=== PATIENT | female | born 1975 | race Caucasian/White ===

== ENCOUNTER → 2018-02-13 | Outpatient (CLI) | payer OTHER ==
[~2018-02-13] MED LIST: FLUC150A PO; LORA10 PO; Prednisone20 MG PO
== END ==
LOC: LAB SHORT 13:30 → PLD 13:30
DX: N84.1 Polyp of cervix uteri (principal)
CPT/HCPCS: 88305

== ENCOUNTER → 2018-05-07 | Outpatient (CLI) | payer OTHER | LOC: LAB 12:21 → LAB SHORT 12:21 | PROVIDERS: Obstetrics & Gynecology | DX: N89.8 Other specified noninflammatory disorders of vagina (principal); N93.9 Abnormal uterine and vaginal bleeding, unspecified | CPT/HCPCS: 87070; 87205; 87624; 88142 ==

== ENCOUNTER → 2018-08-02 | Outpatient (CLI) | payer OTHER | END | disposition home or self-care (01) | LOC: LAB EV 19:15 → LAB SHORT 19:15 | DX: J06.9 Acute upper respiratory infection, unspecified (principal) | CPT/HCPCS: 87070 ==

== ENCOUNTER → 2018-12-04 | Outpatient (CLI) | payer OTHER ==
[2018-12-06 03:10] LABS: CHLAMYDIA TRACHOMATIS, NAA Negative (Negative); NEISSERIA GONORRHOEAE, NAA Negative (Negative)
== END | disposition home or self-care (01) ==
LOC: LAB EV 13:02 → LAB SHORT 13:02
PROVIDERS: Physician Assistant Medical
DX: J02.9 Acute pharyngitis, unspecified (principal); N94.819 Vulvodynia, unspecified
CPT/HCPCS: 87070; 87147; 87205; 87491; 87529; 87591

== ENCOUNTER → 2019-02-22 | Outpatient (CLI) | payer OTHER | END | disposition home or self-care (01) | LOC: LAB SHORT 10:55 → LAB 10:55 | DX: N93.9 Abnormal uterine and vaginal bleeding, unspecified (principal); R53.83 Other fatigue; Z85.3 Personal history of malignant neoplasm of breast | CPT/HCPCS: 87070; 87205 ==

== ENCOUNTER → 2021-10-27 | Outpatient (CLI) | payer OTHER | END | disposition home or self-care (01) | LOC: LAB 20:06 → LAB SHORT 20:06 | DX: N39.0 Urinary tract infection, site not specified (principal) | CPT/HCPCS: 87086 ==

== ENCOUNTER → 2022-05-19 | Outpatient (CLI) | payer OTHER | END | disposition home or self-care (01) | LOC: LAB 09:47 → LAB SHORT 09:47 | DX: N39.0 Urinary tract infection, site not specified (principal) | CPT/HCPCS: 87077; 87086; 87186 ==

== ENCOUNTER → 2022-08-26 | Outpatient (CLI) | payer OTHER ==
[2022-08-29 15:08] LABS: HPV 16 Negative (Negative); HPV 18 Negative (Negative); HPV OTHER HR TYPES Positive (Negative)
== END | disposition home or self-care (01) ==
LOC: LAB SHORT 14:02 → LAB 14:02
PROVIDERS: Family Medicine
DX: Z01.419 Encounter for gynecological examination (general) (routine) without abnormal findings (principal)
CPT/HCPCS: 87624; 87625; G0123

== ENCOUNTER → 2023-07-07 | Outpatient (CLI) | payer OTHER ==
[2023-07-11 10:10] LABS: HPV 16 Negative (Negative); HPV 18 Negative (Negative); HPV OTHER HR TYPES Positive (Negative)
== END ==
LOC: LAB SHORT 13:29 → LAB 13:29
PROVIDERS: Obstetrics & Gynecology
DX: Z12.4 Encounter for screening for malignant neoplasm of cervix (principal)
CPT/HCPCS: 87624; G0145

== ENCOUNTER → 2023-08-11 | Outpatient (CLI) | payer OTHER ==
[2023-08-11 14:41] LABS: Source, Urine Clean Catch
[2023-08-11 15:33] LABS: Bilirubin, Urine Neg (Neg); Blood, Urine 5+ (Neg); Color, Urine Yellow (P-Yellow); Glucose Qualitative, Urine Neg (Neg); Ketones, Urine Neg (Neg); Leukocyte Esterase, Urine Neg (Neg); Nitrite, Urine Neg (Neg); Protein, Urine Neg (Neg); Urobilinogen, Urine NORM (Normal)
[2023-08-11 15:51] LABS: Appearance, Urine Hazy (Clear)
[2023-08-11 15:53] LABS: Bacteria Mod /hpf; Mucus Light (0-Heavy); Red Blood Cells, Urine TNTC /hpf (0-2); Squamous Epithelial Cells Rare /hpf (Few)
== END | disposition home or self-care (01) ==
LOC: LAB 14:40 → LAB SHORT 14:40
PROVIDERS: Obstetrics & Gynecology
DX: Z78.9 Other specified health status (principal)
CPT/HCPCS: 81001; 87086

== ENCOUNTER 2023-08-24 10:45 | Day surgery (SDC) | payer OTHER ==
[~2023-08-24] VITALS: Ht 162.6 cm; Wt 80.1 kg
--- NOTE | 2023-08-24 13:04 | NUR ---
08/24/23 1304 Grace Pineda IUD PLACED BY DR RUSHING AT [facility]. EXPIRATION 02/10/2026 LOT # [id number]. PLACED AT 1303.
[2023-08-24 14:03] VITALS: BP 120/74
--- NOTE | 2023-08-24 14:04 | NUR ---
08/24/23 1404 Tayler Chew FAMILY IN ROOM W PT, PT REPORTS PAIN IS MUCH BETTER AT 2/10 REPORTS IT IS TOLERABLE DECLINES IV PAIN MEDICATION
== END 2023-08-24 14:25 | disposition home or self-care (01) ==
LOC: ORSCSDS 10:45
PROVIDERS: Obstetrics & Gynecology
PROC: 0UH97HZ Insertion of Contraceptive Device into Uterus, Via Natural or Artificial Opening (ICD-10-PCS; principal; 2023-08-24 12:00)
PROC: 0UDB8ZX Extraction of Endometrium, Via Natural or Artificial Opening Endoscopic, Diagnostic (ICD-10-PCS; principal; 2023-08-24 12:00)
DX: N93.8 Other specified abnormal uterine and vaginal bleeding (principal); N88.2 Stricture and stenosis of cervix uteri; N72 Inflammatory disease of cervix uteri; D68.51 Activated protein C resistance; Z85.3 Personal history of malignant neoplasm of breast; Z79.899 Other long term (current) drug therapy
CPT/HCPCS: 88305; A9270; J1100; J1885; J2405; J2704; J3010; J7120; J7297

== ENCOUNTER → 2023-09-15 | Outpatient (CLI) | payer OTHER | END | disposition home or self-care (01) | LOC: LAB 13:13 → LAB SHORT 13:13 | DX: N87.9 Dysplasia of cervix uteri, unspecified (principal); N72 Inflammatory disease of cervix uteri | CPT/HCPCS: 88305 ==

== ENCOUNTER → 2023-12-01 | Outpatient (CLI) | payer OTHER ==
[2023-12-01 16:08] LABS: Source, Urine Clean Catch
[2023-12-01 18:15] LABS: Appearance, Urine Hazy (Clear); Bilirubin, Urine Neg (Neg); Blood, Urine 5+ (Neg); Color, Urine Yellow (P-Yellow); Glucose Qualitative, Urine Neg (Neg); Ketones, Urine Neg (Neg); Leukocyte Esterase, Urine 1+ (Neg); Nitrite, Urine Neg (Neg); Protein, Urine 1+ (Neg); Urobilinogen, Urine NORM (Normal)
[2023-12-01 18:29] LABS: Bacteria Few /hpf; Red Blood Cells, Urine 25-50 /hpf (0-2); Squamous Epithelial Cells Few /hpf (Few)
== END | disposition home or self-care (01) ==
LOC: LAB SHORT 16:04 → LAB 16:04
PROVIDERS: Obstetrics & Gynecology
DX: Z01.812 Encounter for preprocedural laboratory examination (principal)
CPT/HCPCS: 81001; 87086

== ENCOUNTER 2023-12-11 08:21 | Day surgery (SDC) | payer OTHER ==
[2023-12-08 10:19] LABS: International Normalized Ratio 0.98; Prothrombin Time Results 10.3 Sec (9.7-11.5)
[2023-12-08 10:22] LABS: BASOPHILS ABSOLUTE AUTO 0.11 K/mm3 (0.00-0.23); BASOPHILS PERCENT AUTO 1 % (0-2); EOSINOPHILS PERCENT AUTO 5 % (0-6); IMMATURE GRAN ABSOLUTE AUTO 0.03 K/mm3 (0.00-0.10); IMMATURE GRAN PERCENT AUTO 0 % (0-1); LYMPHOCYTES ABSOLUTE AUTO 2.35 K/mm3 (0.84-5.20); LYMPHOCYTES PERCENT AUTO 23 % (21-46); MONOCYTES ABSOLUTE AUTO 0.69 K/mm3 (0.16-1.47); MONOCYTES PERCENT AUTO 7 % (4-13); Mean Corpuscular HGB Conc 31.8 g/dL (31.5-36.5); Mean Corpuscular Volume 79 fL (80-100); Mean Platelet Volume 8.8 fL (9.1-12.4); NEUTROPHILS ABSOLUTE AUTO 6.65 K/mm3 (1.96-9.15); NEUTROPHILS PERCENT AUTO 64 % (41-73); Platelet Count 318 K/mm3 (150-400); Red Blood Cell Count 5.59 M/mm3 (3.80-5.20); White Blood Cell Count 10.33 K/mm3 (4.00-11.30)
[2023-12-11] VITALS (18 sets, daily range): BP systolic 113–151; BP diastolic 62–88
[~2023-12-11] VITALS: Ht 170.2 cm; Wt 82.9 kg
--- NOTE | 2023-12-11 14:23 | NUR ---
PT ARRIVED TO FROM PACU ORIENTED TO USE OF CALL LIGHT. PROVIDED COOL CLOTH TO FOREHEAD AND PROVIDED TISSUE, ICE WATER AND JELLO. FAMILY BEDSIDE. VSS.
--- NOTE | 2023-12-11 19:31 | NUR ---
SHIFT SUMMARY PT A&0X4, VSS/RA, JOVANY PO, PAIN MANAGED, AMB INDEPENDENTLY. BS >400 - REFUSED STRAIGHT CATH, AMB HALLWAY, VOIDED-PT REP LARGE AMT, FOLLOW UP BS 589; PT AND MOM ARE AMB HALLWAY AND WILL BE BS AGAIN BY NOC SHIFT. WILL REPORT TO ONCOMING NOC RN.
--- NOTE | 2023-12-11 20:27 | NUR ---
DC/ASSESSMENT POD 0-ROBOTIC LAP TOTAL HYSTER. AOX4, WALKING HALLS IND c MOTHER. REPORTS PAIN 11/22, STATES TOLERABLE. DENIES ANY HEAVY BLEEDING OR CLOTS ON DEBRA PAD. DENIES N/V, TOLERATING PO. VSS. BLADDER SCAN FOR ROUGHLY 500ML & PT VOIDED AROUND 500ML. PT REQUESTING TO DC TONIGHT. IV REMOVED. DOCK SUPERVISORMAY Cheek WORKING ON DC.
== END 2023-12-11 20:44 | disposition home or self-care (01) ==
LOC: ORSCMMR 08:21 → ORD 09:30 → ORSCMMR 09:30 → ORD 10:15 → SURS 14:29 → ORSCMMR 20:44
PROVIDERS: Obstetrics & Gynecology
PROC: 0UT9FZZ Resection of Uterus, Via Natural or Artificial Opening With Percutaneous Endoscopic Assistance (ICD-10-PCS; principal; 2023-12-11 09:30)
PROC: 0UPD7HZ Removal of Contraceptive Device from Uterus and Cervix, Via Natural or Artificial Opening (ICD-10-PCS; principal; 2023-12-11 09:30)
PROC: 0UT7FZZ Resection of Bilateral Fallopian Tubes, Via Natural or Artificial Opening With Percutaneous Endoscopic Assistance (ICD-10-PCS; principal; 2023-12-11 09:30)
DX: N93.8 Other specified abnormal uterine and vaginal bleeding (principal); N85.00 Endometrial hyperplasia, unspecified; D25.9 Leiomyoma of uterus, unspecified; N80.03 Adenomyosis of the uterus; N72 Inflammatory disease of cervix uteri; N73.6 Female pelvic peritoneal adhesions (postinfective); Z30.432 Encounter for removal of intrauterine contraceptive device; Z47.2 Encounter for removal of internal fixation device; D68.51 Activated protein C resistance; Z85.3 Personal history of malignant neoplasm of breast; Z79.01 Long term (current) use of anticoagulants
CPT/HCPCS: 36415; 85025; 85610; 85730; 86850; 86900; 86901; 88307; A9270; J0690; J1100; J1170; J1644; J2250; J2405; J2704; J2765; J3010; J7120